=== PATIENT | female | born 2000 | race Hispanic/Latino ===

== ENCOUNTER 2018-08-29 22:03 | Emergency (ER) | payer BC, MEDICAID, OTHER | END 2018-08-29 23:34 | disposition home or self-care (01) | LOC: EDH 22:03 | DX: T20.16XA Burn of first degree of forehead and cheek, initial encounter (principal); R21 Rash and other nonspecific skin eruption; Z98.890 Other specified postprocedural states; X08.8XXA Exposure to other specified smoke, fire and flames, initial encounter; Y93.89 Activity, other specified; Y92.89 Other specified places as the place of occurrence of the external cause; Y99.8 Other external cause status | CPT/HCPCS: 99281 ==